=== PATIENT | male | born 1940 | race Caucasian/White ===

== ENCOUNTER 2018-12-31 05:40 | Emergency (ER) | payer MEDICARE, OTHER ==
[2018-12-31] MEDS: Gabapentin 100 MG Cap PO ONE (06:50)
[2018-12-31] MEDS: Ketorolac 30 MG/ML SDV IM ONE (06:51)
[2018-12-31] MEDS: Ondansetron 4 MG Tab.DIS PO ONE (06:51)
--- NOTE | 2018-12-31 06:51 | EDM.PDOC ---
ED HPI GENERAL MEDICAL PROBLEM - General Chief Complaint: Back Pain or Injury Stated Complaint: SICK Time Seen by Provider: 12/31/18 06:58 Source of Information: Reports: Patient History Limitations: Reports: No Limitations - History of Present Illness INITIAL COMMENTS - FREE TEXT/NARRATIVE: c/o shingles pain pt with melanoma on the right side of his neck, dx 01/08, had surgery then followed by RT in [place], then had reoccurrence and a 2nd surgery 3m ago again had RT, then has received 4 courses of chemo including yesterday in [place] , has a port did get 2 liters IVF each of the past 2d developed shingles 2w ago, tx'ed with acyclovir TID x 1w as well as a topical cream that stung initially felt okay yesterday, developed more severe pain at [place] last night, pacing the floor, not able to sleep, says he "cannot stand it" pain across back of R shoulder and down R arm has not had shingles vaccine lives alone says he is supposed to see his surgeon today in [place] but is not going to make the trip 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 Upper Back Pain Score (Numeric/FACES): 10 - Related Data Allergies Allergy/AdvReac Type Severity Reaction Status Date / Time No Known Allergies Allergy Verified 12/30/17 13:43 Home Meds: Home Meds Amitriptyline [Elavil] 10 mg PO TID #56 tablet 12/31/18 [Rx] Aspirin [Halfprin] 81 mg PO DAILY 12/31/18 [History] Gabapentin [Neurontin] 100 mg PO TID #42 cap 12/31/18 [Rx] Hydrocodone/Acetaminophen [Krum 5-325 Tablet] 1 each PO Q6H PRN #15 tablet 01/09 [Rx] Metoclopramide HCl 10 mg PO Q6H PRN #12 tablet 12/31/18 [Rx] Omeprazole 20 mg PO DAILY 12/31/18 [History] Ondansetron [Ondansetron ODT] 4 mg PO Q8H PRN 12/31/18 [History] Pravastatin Sodium 20 mg PO BEDTIME 12/31/18 [History] Verapamil [Calan SR] 180 mg PO DAILY 12/31/18 [History] amLODIPine Besylate [Amlodipine Besylate] 10 mg PO DAILY 12/31/18 [History] metFORMIN HCl [Metformin HCl] 1,000 mg PO BID 12/31/18 [History] traZODone HCl [Trazodone HCl] 50 mg PO BEDTIME 12/31/18 [History] Social & Family History - Tobacco Use Smoking Status *Q: Never Smoker - Caffeine Use Caffeine Use: Reports: None - Recreational Drug Use Recreational Drug Use: No ED ROS GENERAL - Review of Systems Review Of Systems: See Below Constitutional: Reports: No Symptoms HEENT: Reports: No Symptoms Respiratory: Reports: No Symptoms Cardiovascular: Reports: No Symptoms Endocrine: Reports: No Symptoms GI/Abdominal: Reports: No Symptoms : Reports: No Symptoms Musculoskeletal: Reports: No Symptoms Skin: Reports: Rash, Other (burning pain) Neurological: Reports: No Symptoms Psychiatric: Reports: No Symptoms Hematologic/Lymphatic: Reports: No Symptoms Immunologic: Reports: No Symptoms ED EXAM, SKIN/RASH Exam: See Below Exam Limited By: No Limitations General Appearance: Alert, WD/WN, No Apparent Distress Skin: Other (typical zoster rash horizontally across R mid scapula, red papules of 3-5 mm with several 3 mm dried ulcerations, width of 6 cm, length of ~25 cm, extends down posterior aspect of RUE, not sensitive to the touch, no surrounding erythema or warmth or evidence of secondary infection) Course - Vital Signs Last Recorded V/S: Last Vital Signs Temp 36.8 C 12/31/18 05:45 Pulse 47 L 12/31/18 05:45 Resp 18 12/31/18 05:45 BP 188/74 H 12/31/18 05:45 Pulse Ox 97 12/31/18 05:45 - Orders/Labs/Meds Orders: Active Orders 24 hr Category Date Time Status Acetaminophen/HYDROcodone [Krum 325-5 MG] Med 12/31/18 06:44 Once 1 tab PO ONETIME ONE Gabapentin [Neurontin] Med 12/31/18 06:43 Once 100 mg PO ONETIME ONE Medication Orders Hydrocodone Bitart/Acetaminophen (Krum 325-5 Mg) 1 tab PO ONETIME ONE Stop: 12/31/18 06:45 Gabapentin (Neurontin) 100 mg PO ONETIME ONE Stop: 12/31/18 06:44 Meds: Medications Generic Name Dose Route Start Last Admin Trade Name Freq PRN Reason Stop Dose Admin Hydrocodone Bitart/Acetaminophen 1 tab 12/31/18 06:44 Krum 325-5 Mg PO 12/31/18 06:45 ONETIME ONE Gabapentin 100 mg 12/31/18 06:43 Neurontin PO 12/31/18 06:44 ONETIME ONE Discontinued Medications Generic Name Dose Route Start Last Admin Trade Name Freq PRN Reason Stop Dose Admin Ketorolac Tromethamine 15 mg 12/31/18 06:41 Toradol IM 12/31/18 06:42 ONETIME ONE Ondansetron HCl 4 mg 12/31/18 06:41 Zofran Odt PO 12/31/18 06:42 ONETIME ONE Departure - Departure Time of Disposition: 06:45 Disposition: DC/Tfer to Hospice - Home 50 Condition: Good Clinical Impression: Postherpetic neuralgia - Discharge Information *PRESCRIPTION DRUG MONITORING PROGRAM REVIEWED*: Not Applicable *COPY OF PRESCRIPTION DRUG MONITORING REPORT IN PATIENT DAVID: Not Applicable Prescriptions: Amitriptyline [Elavil] 10 mg PO TID #56 tablet Gabapentin [Neurontin] 100 mg PO TID #42 cap Hydrocodone/Acetaminophen [Krum 5-325 Tablet] 1 each PO Q6H PRN #15 tablet PRN Reason: Pain Metoclopramide HCl 10 mg PO Q6H PRN #12 tablet PRN Reason: Nausea Instructions: Neuropathic Pain, Postherpetic Neuralgia Referrals: Greg Manzano MD [Primary Care Provider] - Additional Instructions: For pain, take gabapentin 100 mg 1 capsule 3 times a day. For pain, take amitryptyline 10 mg one tab in the morning, one tab in the early afternoon and two tabs in the evening. For pain, take hydrocodone with acetaminophen 5/325 mg 1 tab every 6 hours as needed. No alcohol. For pain, use cool compress for 10 minutes every hour as needed. For nausea, take metoclopramide 10 mg one tab every 6 hours as needed. See your doctor either tomorrow or in 4 days. Return to ED if you are feeling worse. - My Orders Last 24 Hours: My Active Orders 12/31/18 06:43 Gabapentin [Neurontin] 100 mg PO ONETIME ONE 12/31/18 06:44 Acetaminophen/HYDROcodone [Krum 325-5 MG] 1 tab PO ONETIME ONE - Assessment/Plan Last 24 Hours: My Active Orders 12/31/18 06:43 Gabapentin [Neurontin] 100 mg PO ONETIME ONE 12/31/18 06:44 Acetaminophen/HYDROcodone [Krum 325-5 MG] 1 tab PO ONETIME ONE
[2018-12-31] MEDS: Acetaminophen/HYDROcodone 325-5 MG Tab PO ONE (06:59)
== END 2018-12-31 07:25 | disposition home or self-care (01) ==
LOC: FB.ED 05:40
DX: B02.29 Other postherpetic nervous system involvement (principal); Z79.82 Long term (current) use of aspirin
CPT/HCPCS: 99282; A9270; J1885

== ENCOUNTER 2019-11-27 09:06 | Emergency (ER) | payer MEDICARE ==
[2019-11-27] MEDS ORDERED: Sodium Chloride 0.9% 10 ML Syringe FLUSH PRN (09:24)
[2019-11-27] MEDS ORDERED: Sodium Chloride 0.9% 1,000 ML IV SCH (09:30)
[2019-11-27] MEDS ORDERED: Ondansetron 4 MG/2 ML SDV IVPUSH ONE (09:52)
--- NOTE | 2019-11-27 11:22 | EDM.PDOC ---
ED HPI GENERAL MEDICAL PROBLEM - General Chief Complaint: General Stated Complaint: NOT FEELING WELL Time Seen by Provider: 11/27/19 09:20 Source of Information: Reports: Patient History Limitations: Reports: No Limitations - History of Present Illness INITIAL COMMENTS - FREE TEXT/NARRATIVE: Patient presented to the ED because of weakness and nausea. He has poor oral intake for several days. Denies any abdominal pain,cough/cold,fever or chills. - Related Data Allergies Allergy/AdvReac Type Severity Reaction Status Date / Time No Known Allergies Allergy Verified 11/27/19 09:22 Home Meds: Home Meds Omeprazole 20 mg PO DAILY 12/31/18 [History] Pravastatin Sodium 20 mg PO BEDTIME 12/31/18 [History] Verapamil [Calan SR] 180 mg PO DAILY 12/31/18 [History] traZODone HCl [Trazodone HCl] 50 mg PO BEDTIME 12/31/18 [History] Aspirin [Halfprin] 81 mg PO DAILY 11/27/19 [History] Magnesium Oxide 250 mg PO DAILY 11/27/19 [History] Ondansetron [Zofran ODT] 4 mg PO Q6H PRN #7 tab.dis 11/27/19 [Rx] amLODIPine [Norvasc] 2.5 mg PO DAILY 11/27/19 [History] hydrOXYzine pamoate [Hydroxyzine Pamoate] 25 mg PO BEDTIME 11/27/19 [History] Past Medical History HEENT History: Reports: Impaired Vision Cardiovascular History: Reports: High Cholesterol, Hypertension Respiratory History: Reports: Other (See Below) Other Respiratory History: former smoker. Gastrointestinal History: Reports: GERD Endocrine/Metabolic History: Reports: Diabetes, Type II Oncologic (Cancer) History: Reports: Malignant Melanoma Dermatologic History: Reports: Other (See Below) Other Dermatologic History: has melanoma. - Past Surgical History HEENT Surgical History: Reports: Other (See Below) Other HEENT Surgeries/Procedures: states that he had surgery in his neck to remove 10 lymph nodes about a year ago. Social & Family History - Family History Family Medical History: Noncontributory - Tobacco Use Smoking Status *Q: Former Smoker Used Tobacco, but Quit: Yes Month/Year Tobacco Last Used: 1988 Second Hand Smoke Exposure: No - Caffeine Use Caffeine Use: Reports: Coffee, Energy Drinks, Soda - Alcohol Use Days Per Week of Alcohol Use: 4 Number of Drinks Per Day: 2 Total Drinks Per Week: 8 - Recreational Drug Use Recreational Drug Use: No ED ROS GENERAL - Review of Systems Review Of Systems: See Below Constitutional: Reports: Weakness HEENT: Reports: No Symptoms Respiratory: Reports: No Symptoms Cardiovascular: Reports: No Symptoms Endocrine: Reports: No Symptoms GI/Abdominal: Reports: Nausea : Reports: No Symptoms Musculoskeletal: Reports: No Symptoms Skin: Reports: No Symptoms Neurological: Reports: No Symptoms Psychiatric: Reports: No Symptoms Hematologic/Lymphatic: Reports: No Symptoms ED EXAM, GENERAL - Physical Exam Exam: See Below Exam Limited By: No Limitations General Appearance: Alert, No Apparent Distress Ears: Normal External Exam, Normal Canal Nose: Normal Inspection, Normal Mucosa Throat/Mouth: Normal Inspection, Normal Lips Head: Atraumatic, Normocephalic Neck: Normal Inspection, Supple, Non-Tender, Full Range of Motion Respiratory/Chest: No Respiratory Distress, Lungs Clear, Normal Breath Sounds Cardiovascular: Normal Peripheral Pulses, Regular Rate, Rhythm, No Edema, No Gallop, No JVD, No Murmur, No Rub GI/Abdominal: Normal Bowel Sounds, Soft, Non-Tender, No Organomegaly Back Exam: Normal Inspection, Full Range of Motion Extremities: Normal Inspection, Normal Range of Motion, Non-Tender Course - Vital Signs Text/Narrative:: Labs/EKG was discussed with patient NS 1 L bolus Zofran 4 mg IV x1 Last Recorded V/S: Last Vital Signs Temp 36.3 C 11/27/19 11:22 Pulse 51 L 11/27/19 11:22 Resp 18 11/27/19 11:22 BP 135/64 11/27/19 11:22 Pulse Ox 95 11/27/19 11:22 - Orders/Labs/Meds Orders: Active Orders 24 hr Category Date Time Status Chest 1V Frontal [CR] Stat Exams 11/27/19 09:24 Taken Saline Lock Insert [OM.PC] Routine Oth 11/27/19 09:24 Ordered EKG 12 Lead [EK] Routine Ther 11/27/19 09:24 Ordered Labs: Laboratory Tests 11/27/19 11/27/19 11/27/19 Range/Units 09:40 09:40 09:40 WBC 6.3 (4.5-12.0) X10-3/uL RBC 4.37 (4.30-5.75) x10(6)uL Hgb 13.3 L (13.5-17.8) g/dL Hct 39.9 (30.0-51.3) % MCV 91.2 (80-96) fL MCH 30.3 (27.7-33.6) pg MCHC 33.2 (32.2-35.4) g/dL RDW 12.9 (11.5-15.5) % Plt Count 125 (125-369) X10(3)uL MPV 7.2 L (7.4-10.4) fL Add Manual Diff Yes Neutrophils % (Manual) 73 (46-82) % Lymphocytes % (Manual) 13 (13-37) % Monocytes % (Manual) 11 (4-12) % Eosinophils % (Manual) 3 (0-5) % Sodium 123 L (135-145) mmol/L Potassium 4.0 (3.5-5.3) mmol/L Chloride 89 L* D (100-110) mmol/L Carbon Dioxide 24 (21-32) mmol/L BUN 10 (7-18) mg/dL Creatinine 1.2 (0.70-1.30) mg/dL Est Cr Clr Drug Dosing TNP Estimated GFR (MDRD) 58 L (>60) BUN/Creatinine Ratio 8.3 L (9-20) Glucose 104 (80-116) mg/dL Lactic Acid (0.4-2.0) mmol/L Calcium 9.0 (8.6-10.2) mg/dL Total Bilirubin 0.8 (0.1-1.3) mg/dL AST 34 H (5-25) IU/L ALT 33 (12-36) U/L Alkaline Phosphatase 76 (56-112) IU/L Troponin I 14.4 (4.0-60.3) pg/mL Total Protein 7.3 (6.0-8.0) g/dL Albumin 3.7 (3.2-4.6) g/dL Globulin 3.6 g/dL Albumin/Globulin Ratio 1.0 Urine Color (YELLOW) Urine Appearance (CLEAR) Urine pH (5.0-6.5) Ur Specific [place] (1.010-1.025) Urine Protein (NEGATIVE) mg/dL Urine Glucose (UA) (NORMAL) mg/dL Urine Ketones (NEGATIVE) mg/dL Urine Occult Blood (NEGATIVE) Urine Nitrite (NEGATIVE) Urine Bilirubin (NEGATIVE) Urine Urobilinogen (NEGATIVE) mg/dL Ur Leukocyte Esterase (NEGATIVE) Urine WBC (0-5) Ur Squamous Epith Cells (NS,R,O) Urine Bacteria (NS) 11/27/19 11/27/19 Range/Units 09:40 10:40 WBC (4.5-12.0) X10-3/uL RBC (4.30-5.75) x10(6)uL Hgb (13.5-17.8) g/dL Hct (30.0-51.3) % MCV (80-96) fL MCH (27.7-33.6) pg MCHC (32.2-35.4) g/dL RDW (11.5-15.5) % Plt Count (125-369) X10(3)uL MPV (7.4-10.4) fL Add Manual Diff Neutrophils % (Manual) (46-82) % Lymphocytes % (Manual) (13-37) % Monocytes % (Manual) (4-12) % Eosinophils % (Manual) (0-5) % Sodium (135-145) mmol/L Potassium (3.5-5.3) mmol/L Chloride (100-110) mmol/L Carbon Dioxide (21-32) mmol/L BUN (7-18) mg/dL Creatinine (0.70-1.30) mg/dL Est Cr Clr Drug Dosing Estimated GFR (MDRD) (>60) BUN/Creatinine Ratio (9-20) Glucose (80-116) mg/dL Lactic Acid 1.0 (0.4-2.0) mmol/L Calcium (8.6-10.2) mg/dL Total Bilirubin (0.1-1.3) mg/dL AST (5-25) IU/L ALT (12-36) U/L Alkaline Phosphatase (56-112) IU/L Troponin I (4.0-60.3) pg/mL Total Protein (6.0-8.0) g/dL Albumin (3.2-4.6) g/dL Globulin g/dL Albumin/Globulin Ratio Urine Color Yellow (YELLOW) Urine Appearance Clear (CLEAR) Urine pH 5.0 (5.0-6.5) Ur Specific [place] 1.020 (1.010-1.025) Urine Protein Negative (NEGATIVE) mg/dL Urine Glucose (UA) Normal (NORMAL) mg/dL Urine Ketones 15 H (NEGATIVE) mg/dL Urine Occult Blood Negative (NEGATIVE) Urine Nitrite Negative (NEGATIVE) Urine Bilirubin Negative (NEGATIVE) Urine Urobilinogen Normal (NEGATIVE) mg/dL Ur Leukocyte Esterase Negative (NEGATIVE) Urine WBC 0-5 (0-5) Ur Squamous Epith Cells Occasional (NS,R,O) Urine Bacteria Few H (NS) Meds: Medications Discontinued Medications Generic Name Dose Route Start Last Admin Trade Name Freq PRN Reason Stop Dose Admin Sodium Chloride 1,000 mls @ 999 mls/hr 11/27/19 09:30 11/27/19 09:40 Normal Saline IV 999 mls/hr ASDIRECTED PABLO Administration Ondansetron HCl 4 mg 11/27/19 09:52 11/27/19 10:02 Zofran IVPUSH 11/27/19 09:53 4 mg ONETIME ONE Administration Sodium Chloride 10 ml 11/27/19 09:24 11/27/19 09:30 Saline Flush FLUSH 10 ml ASDIRECTED PRN Administration Keep Vein Open Departure - Departure Time of Disposition: 11:15 Disposition: Home, Self-Care 01 Condition: Good Clinical Impression: Hyponatremia, Weakness - Discharge Information Prescriptions: Ondansetron [Zofran ODT] 4 mg PO Q6H PRN #7 tab.dis PRN Reason: Nausea Instructions: Sodium Test Referrals: Greg Manzano MD [Primary Care Provider] - Forms: ED Department Discharge Additional Instructions: please read discharge instructions on low sodium add a little bit of salt in your diet zofran odt 4 mg every 4 hours as needed follow up as needed Sepsis Event Note (ED) - Evaluation Sepsis Screening Result: No Definite Risk - Focused Exam Vital Signs: Vital Signs Temp Pulse Resp BP Pulse Ox 11/27/19 11:22 36.3 C 51 L 18 135/64 95 11/27/19 09:20 36.0 C L 51 L 18 137/73 96 - My Orders Last 24 Hours: My Active Orders 11/27/19 09:24 Chest 1V Frontal [CR] Stat Saline Lock Insert [OM.PC] Routine EKG 12 Lead [EK] Routine - Assessment/Plan Last 24 Hours: My Active Orders 11/27/19 09:24 Chest 1V Frontal [CR] Stat Saline Lock Insert [OM.PC] Routine EKG 12 Lead [EK] Routine
--- NOTE | 2019-11-30 10:37 | CR ---
INDICATION: Weakness. CHEST, ONE VIEW: Portable AP upright view of the chest was obtained 11/27/19 and compared with 10/01/07. The heart did not appear grossly enlarged. A central line is now noted in place with its tip in good position on this view. Calcification is suggested in the arch of the aorta to a minimal degree. A definite active infiltrate or effusion was not identified. IMPRESSION: No acute process. MTDD
== END 2019-11-27 11:35 | disposition home or self-care (01) ==
LOC: FB.ED 09:06
DX: E87.1 Hypo-osmolality and hyponatremia (principal); R53.1 Weakness; I10 Essential (primary) hypertension; E78.00 Pure hypercholesterolemia, unspecified; E11.9 Type 2 diabetes mellitus without complications; K21.9 Gastro-esophageal reflux disease without esophagitis; Z87.891 Personal history of nicotine dependence; Z79.899 Other long term (current) drug therapy; Z79.82 Long term (current) use of aspirin
CPT/HCPCS: 36415; 71045; 80053; 81001; 83605; 84484; 85025; 93005; 96361; 96374; 99285-25; J2405; J7030

== ENCOUNTER 2019-12-09 08:37 | Emergency (ER) | payer MEDICARE ==
--- NOTE | 2019-12-09 09:25 | EDM.PDOC ---
ED HPI GENERAL MEDICAL PROBLEM - General Chief Complaint: Gastrointestinal Problem Stated Complaint: ABD PAIN Time Seen by Provider: 12/09/19 09:00 Source of Information: Reports: Patient, Old Records History Limitations: Reports: No Limitations - History of Present Illness INITIAL COMMENTS - FREE TEXT/NARRATIVE: Hien returns to [facility] with ongoing sxs of lt headinsss, fatigue, loss of appetite and some diarrhea ongoing over the past couple of weeks. He has lost 1- 2#, and denies fever, chills, or sweats. His legs feel week, as though they might buckle at times. He was diagnosed with hyponatremia on November 29, and managed with 1L NS, follow up sodium 2 days later apparently baseline. He denies headaches, visual change, LOC, falls, vomiting or excessive belching. He is a known Type II DM with CKD 3 and Stage 3C Melanoma, last chemo about 3 mos ago. His oncologist detected hyponatremia on July 14, and d/cd Nivolumab agent and managed initially with steroids. Patient decided to stop supplemental steroids for presumed adrenal insufficiency. - Related Data Allergies Allergy/AdvReac Type Severity Reaction Status Date / Time No Known Allergies Allergy Verified 12/09/19 09:00 Home Meds: Home Meds Omeprazole 20 mg PO DAILY 12/31/18 [History] Pravastatin Sodium 20 mg PO BEDTIME 12/31/18 [History] Verapamil [Calan SR] 180 mg PO DAILY 12/31/18 [History] traZODone HCl [Trazodone HCl] 50 mg PO BEDTIME 12/31/18 [History] Aspirin [Halfprin] 81 mg PO DAILY 11/27/19 [History] Magnesium Oxide 250 mg PO DAILY 11/27/19 [History] Ondansetron [Zofran ODT] 4 mg PO Q6H PRN #7 tab.dis 11/27/19 [Rx] amLODIPine [Norvasc] 2.5 mg PO DAILY 11/27/19 [History] hydrOXYzine pamoate [Hydroxyzine Pamoate] 25 mg PO BEDTIME 11/27/19 [History] Past Medical History HEENT History: Reports: Impaired Vision Cardiovascular History: Reports: High Cholesterol, Hypertension Respiratory History: Reports: Other (See Below) Other Respiratory History: former smoker. Gastrointestinal History: Reports: GERD Endocrine/Metabolic History: Reports: Diabetes, Type II Oncologic (Cancer) History: Reports: Malignant Melanoma Dermatologic History: Reports: Other (See Below) Other Dermatologic History: has melanoma. - Past Surgical History HEENT Surgical History: Reports: Other (See Below) Other HEENT Surgeries/Procedures: states that he had surgery in his neck to remove 10 lymph nodes about a year ago. Social & Family History - Family History Family Medical History: Noncontributory - Caffeine Use Caffeine Use: Reports: Coffee, Energy Drinks, Soda ED ROS GENERAL - Review of Systems Review Of Systems: See Below Constitutional: Reports: Malaise, Weakness, Fatigue, Weight Loss HEENT: Reports: No Symptoms Respiratory: Reports: No Symptoms Cardiovascular: Reports: Lightheadedness Endocrine: Reports: Fatigue GI/Abdominal: Reports: Decreased Appetite : Reports: No Symptoms Musculoskeletal: Reports: No Symptoms Skin: Reports: No Symptoms Neurological: Reports: Weakness (legs feel like they may buckle) Psychiatric: Reports: No Symptoms Hematologic/Lymphatic: Reports: No Symptoms Immunologic: Reports: No Symptoms ED EXAM, GENERAL - Physical Exam Exam: See Below Exam Limited By: No Limitations General Appearance: Alert, WD/WN, No Apparent Distress, Obese Eye Exam: Bilateral Eye: EOMI, Normal Inspection, PERRL Ears: Normal External Exam Nose: Normal Inspection Throat/Mouth: Normal Lips, Normal Oropharynx, Normal Voice, No Airway Compromise Head: Atraumatic, Normocephalic Neck: Normal Inspection, Supple, Non-Tender, Full Range of Motion, Other (well healed scar R neck) Respiratory/Chest: Lungs Clear, Normal Breath Sounds, Chest Non-Tender, Other (veniport L upper chest) Cardiovascular: Normal Peripheral Pulses, Regular Rate, Rhythm, No Murmur, Other (minor pitting edema) GI/Abdominal: Normal Bowel Sounds, Soft, Non-Tender, No Organomegaly, No Distention, No Mass (Male) Exam: Deferred Rectal (Males) Exam: Deferred Back Exam: Normal Inspection Extremities: Pedal Edema (mild) Neurological: Alert, Oriented, CN II-XII Intact, Normal Cognition, No Motor/Sensory Deficits Psychiatric: Normal Affect, Normal Mood Skin Exam: Warm, Dry, Intact, Normal Color, No Rash Lymphatic: No Adenopathy Course - Vital Signs Text/Narrative:: Following assessment, some screening labs were performed, noting Na 128 meq/L has dropped slightly, fractionated urine Na 99 meq. The urine osmols are pending. There is no other changes to renal function. The Head CT w contrast was negative for malignancy. 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 I will resume Prednisone 20 mg per day, institute 800 ml water restriction, and have patient follow up with PCP next week. Last Recorded V/S: Last Vital Signs Temp 36.2 C 12/09/19 08:40 Pulse 60 12/09/19 08:40 Resp 22 H 12/09/19 08:40 BP 131/73 12/09/19 08:40 Pulse Ox 99 12/09/19 08:40 - Orders/Labs/Meds Orders: Active Orders 24 hr Category Date Time Status Head w wo Cont [CT] Stat Exams 12/09/19 10:02 Taken Labs: Laboratory Tests 12/09/19 12/09/19 12/09/19 Range/Units 09:30 09:30 09:30 WBC 6.2 (4.5-12.0) X10-3/uL RBC 3.98 L (4.30-5.75) x10(6)uL Hgb 12.5 L (13.5-17.8) g/dL Hct 36.1 (30.0-51.3) % MCV 90.6 (80-96) fL MCH 31.3 (27.7-33.6) pg MCHC 34.5 (32.2-35.4) g/dL RDW 12.5 (11.5-15.5) % Plt Count 180 (125-369) X10(3)uL MPV 6.8 L (7.4-10.4) fL Neut % (Auto) 65.4 (46-82) % Lymph % (Auto) 12.9 L (13-37) % [place] % (Auto) 15.0 H (4-12) % Eos % (Auto) 6 H (1.0-5.0) % Baso % (Auto) 1 (0-2) % Neut # (Auto) 4.1 (1.6-8.3) # Lymph # (Auto) 0.8 (0.6-5.0) # [place] # (Auto) 0.9 (0.0-1.3) # Eos # (Auto) 0.4 (0.0-0.8) # Baso # (Auto) 0.0 (0.0-0.2) # ESR 36 H (0-15) mm/hr Sodium (135-145) mmol/L Potassium (3.5-5.3) mmol/L Chloride (100-110) mmol/L Carbon Dioxide (21-32) mmol/L BUN (7-18) mg/dL Creatinine (0.70-1.30) mg/dL Est Cr Clr Drug Dosing mL/min Estimated GFR (MDRD) (>60) BUN/Creatinine Ratio (9-20) Glucose (80-116) mg/dL Lactic Acid (0.4-2.0) mmol/L Calcium (8.6-10.2) mg/dL Total Bilirubin (0.1-1.3) mg/dL AST (5-25) IU/L ALT (12-36) U/L Alkaline Phosphatase (56-112) IU/L C-Reactive Protein (0.5-0.9) mg/dL Total Protein (6.0-8.0) g/dL Albumin (3.2-4.6) g/dL Globulin g/dL Albumin/Globulin Ratio Urine Color Yellow (YELLOW) Urine Appearance Clear (CLEAR) Urine pH 6.0 (5.0-6.5) Ur Specific [place] 1.015 (1.010-1.025) Urine Protein Negative (NEGATIVE) mg/dL Urine Glucose (UA) Normal (NORMAL) mg/dL Urine Ketones Negative (NEGATIVE) mg/dL Urine Occult Blood Negative (NEGATIVE) Urine Nitrite Negative (NEGATIVE) Urine Bilirubin Negative (NEGATIVE) Urine Urobilinogen Normal (NEGATIVE) mg/dL Ur Leukocyte Esterase Negative (NEGATIVE) Urine WBC 0-5 (0-5) Ur Squamous Epith Cells Few H (NS,R,O) Urine Bacteria Few H (NS) Ur Random Sodium 99 mmol/L 12/09/19 12/09/19 12/09/19 Range/Units 09:30 09:30 09:30 WBC (4.5-12.0) X10-3/uL RBC (4.30-5.75) x10(6)uL Hgb (13.5-17.8) g/dL Hct (30.0-51.3) % MCV (80-96) fL MCH (27.7-33.6) pg MCHC (32.2-35.4) g/dL RDW (11.5-15.5) % Plt Count (125-369) X10(3)uL MPV (7.4-10.4) fL Neut % (Auto) (46-82) % Lymph % (Auto) (13-37) % [place] % (Auto) (4-12) % Eos % (Auto) (1.0-5.0) % Baso % (Auto) (0-2) % Neut # (Auto) (1.6-8.3) # Lymph # (Auto) (0.6-5.0) # [place] # (Auto) (0.0-1.3) # Eos # (Auto) (0.0-0.8) # Baso # (Auto) (0.0-0.2) # ESR (0-15) mm/hr Sodium 128 L (135-145) mmol/L Potassium 4.2 (3.5-5.3) mmol/L Chloride 94 L D (100-110) mmol/L Carbon Dioxide 28 (21-32) mmol/L BUN 10 (7-18) mg/dL Creatinine 1.4 H (0.70-1.30) mg/dL Est Cr Clr Drug Dosing 43.45 mL/min Estimated GFR (MDRD) 49 L (>60) BUN/Creatinine Ratio 7.1 L (9-20) Glucose 107 (80-116) mg/dL Lactic Acid 0.7 (0.4-2.0) mmol/L Calcium 9.2 (8.6-10.2) mg/dL Total Bilirubin 0.6 (0.1-1.3) mg/dL AST 22 D (5-25) IU/L ALT 22 D (12-36) U/L Alkaline Phosphatase 66 (56-112) IU/L C-Reactive Protein 1.0 H (0.5-0.9) mg/dL Total Protein 6.8 (6.0-8.0) g/dL Albumin 3.4 (3.2-4.6) g/dL Globulin 3.4 g/dL Albumin/Globulin Ratio 1.0 Urine Color (YELLOW) Urine Appearance (CLEAR) Urine pH (5.0-6.5) Ur Specific [place] (1.010-1.025) Urine Protein (NEGATIVE) mg/dL Urine Glucose (UA) (NORMAL) mg/dL Urine Ketones (NEGATIVE) mg/dL Urine Occult Blood (NEGATIVE) Urine Nitrite (NEGATIVE) Urine Bilirubin (NEGATIVE) Urine Urobilinogen (NEGATIVE) mg/dL Ur Leukocyte Esterase (NEGATIVE) Urine WBC (0-5) Ur Squamous Epith Cells (NS,R,O) Urine Bacteria (NS) Ur Random Sodium mmol/L Meds: Medications Discontinued Medications Generic Name Dose Route Start Last Admin Trade Name Freq PRN Reason Stop Dose Admin Iopamidol 100 ml 12/09/19 10:09 12/09/19 10:29 Isovue-370 (76%) IV 12/09/19 10:10 85 ml . DIRECTED ONE Administration Departure - Departure Time of Disposition: 11:47 Disposition: Home, Self-Care 01 Condition: Fair Clinical Impression: Hyponatremia syndrome, Adrenocortical insufficiency - Discharge Information *PRESCRIPTION DRUG MONITORING PROGRAM REVIEWED*: Not Applicable *COPY OF PRESCRIPTION DRUG MONITORING REPORT IN PATIENT DAVID: Not Applicable Referrals: Greg Manzano MD [Primary Care Provider] - Forms: ED Department Discharge Sepsis Event Note (ED) - Evaluation Sepsis Screening Result: No Definite Risk - Focused Exam Vital Signs: Vital Signs Temp Pulse Resp BP Pulse Ox 12/09/19 08:40 36.2 C 60 22 H 131/73 99 - Problem List & Annotations (1) Adrenocortical insufficiency SNOMED Code(s): 838020721 Code(s): E27.40 - UNSPECIFIED ADRENOCORTICAL INSUFFICIENCY Status: Acute Current Visit: Yes Annotation/Comment:: I dispensed Prednisone 20 mg qd for the present, pending follow up with PCP. (2) Hyponatremia syndrome SNOMED Code(s): 2224678 Code(s): E87.1 - HYPO-OSMOLALITY AND HYPONATREMIA Status: Acute Current Visit: Yes Annotation/Comment:: I suggested 800 ml water restriction pending follow up with PCP. - Problem List Review Problem List Initiated/Reviewed/Updated: Yes - My Orders Last 24 Hours: My Active Orders 12/09/19 10:02 Head w wo Cont [CT] Stat - Assessment/Plan Last 24 Hours: My Active Orders 12/09/19 10:02 Head w wo Cont [CT] Stat Plan: Follow up with PCP next week.
[2019-12-09] MEDS ORDERED: Iopamidol 755 Mg/ML 100 ML Bottle IV ONE (10:09)
== END 2019-12-09 11:53 | disposition home or self-care (01) ==
LOC: FB.ED 08:37
DX: E87.1 Hypo-osmolality and hyponatremia (principal); E27.40 Unspecified adrenocortical insufficiency; I10 Essential (primary) hypertension; E11.9 Type 2 diabetes mellitus without complications; E66.9 Obesity, unspecified; K21.9 Gastro-esophageal reflux disease without esophagitis; Z79.82 Long term (current) use of aspirin; Z79.899 Other long term (current) drug therapy
CPT/HCPCS: 36415; 70470; 80053; 81001; 83605; 84300; 85025; 85651; 86140; 99284; Q9967; 99283

== ENCOUNTER 2022-08-19 11:00 | Emergency (ER) | payer MEDICARE ==
[2022-08-19] MEDS ORDERED: traMADol 50 MG Tab PO ONE (11:01)
[2022-08-19] MEDS: Sodium Chloride 0.9% 10 ML Syringe FLUSH PRN (11:15)
[2022-08-19] MEDS: Nitroglycerin 0.4 MG Tab.SL SL ONE (11:16)
[2022-08-19] MEDS: Ondansetron 4 MG/2 ML SDV IVPUSH ONE (11:25)
[2022-08-19 11:31] LABS: BASOPHILS ABSOLUTE AUTO 0.1 x10-3/uL (0.0-0.3); BASOPHILS PERCENT AUTO 0.8 % (0.3-3.8); BLOOD UREA NITROGEN,BUN 18 mg/dL (7-18); BUN/CREATININE RATIO 13.8 (9-20); CALCIUM 9.1 mg/dL (8.6-10.2); CARBON DIOXIDE,CO2 24 mmol/L (21-32); CHLORIDE,CL 98 mmol/L (100-110); CREATININE 1.3 mg/dL (0.70-1.30); EOSINOPHILS ABSOLUTE AUTO 0.1 x10-3/uL (0.0-0.6); EOSINOPHILS PERCENT AUTO 0.5 % (0.1-6.8); ESTIMATED GFR 55 mL/min (>60); GLUCOSE RANDOM 209 mg/dL (80-116); HEMATOCRIT 41.1 % (38.3-50.1); HEMOGLOBIN 14.3 g/dL (12.9-17.7); LYMPHOCYTES ABSOLUTE AUTO 0.6 x10-3/uL (0.5-4.5); LYMPHOCYTES PERCENT AUTO 4.7 % (15.8-45.3); MEAN CORPUSCULAR HEMOGLOBIN 31.6 pg (27.0-33.3); MEAN CORPUSCULAR HGB CONC 34.8 g/dL (28.7-35.3); MEAN PLATELET VOLUME 8.6 fL (6.7-11.0); MONOCYTES ABSOLUTE AUTO 1.7 x10-3/uL (0.0-1.2); MONOCYTES PERCENT AUTO 13.9 % (5.5-15.2); NEUTROPHILS ABSOLUTE AUTO 9.5 x10-3/uL (1.7-6.9); NEUTROPHILS PERCENT AUTO 80.1 % (40.3-71.8); PLATELET COUNT,PLT 149 x10(3)uL (117-477); POTASSIUM,K 4.2 mmol/L (3.5-5.3); RED BLOOD CELL COUNT 4.52 x10(6)uL (3.90-5.90); RED CELL DISTRIBUTION WIDTH 12.8 % (12.4-15.0); SODIUM,NA 133 mmol/L (135-145); WHITE BLOOD CELL COUNT,WBC 11.9 x10-3/uL (3.2-10.1)
[2022-08-19] MEDS: Alum Hydroxide/Mag Hydroxide 15 ML, Lidocaine 2% 15 ML PO ONE ×2 (11:35)
[2022-08-19 11:37] LABS: ALANINE AMINOTRANSFERASE,ALT 42 U/L (12-36); ALBUMIN 3.8 g/dL (3.2-4.6); ALKALINE PHOSPHATASE 87 IU/L (56-112); ASPARTATE AMNIOTRANSFERASE,AST 33 IU/L (5-25); BILIRUBIN TOTAL 1.7 mg/dL (0.1-1.3); PROTEIN TOTAL,TP 7.8 g/dL (6.0-8.0)
[2022-08-19] MEDS: fentaNYL 100 MCG/2 ML SDV IVPUSH STA (11:50)
[2022-08-19] MEDS: Iopamidol 755 Mg/ML 100 ML Bottle IV ONE (12:26)
[2022-08-19] MEDS: Pantoprazole 40 MG Vial IVPUSH ONE (16:05)
[2022-08-19] MEDS: fentaNYL 100 MCG/2 ML SDV IVPUSH ONE (17:42)
== END 2022-08-19 16:40 | disposition home or self-care (01) ==
LOC: FB.ED 11:00
DX: R07.2 Precordial pain (principal); E11.22 Type 2 diabetes mellitus with diabetic chronic kidney disease; I12.9 Hypertensive chronic kidney disease with stage 1 through stage 4 chronic kidney disease, or unspecified chronic kidney disease; N18.9 Chronic kidney disease, unspecified; E78.5 Hyperlipidemia, unspecified; Z79.899 Other long term (current) drug therapy; Z79.82 Long term (current) use of aspirin; Z87.891 Personal history of nicotine dependence
CPT/HCPCS: 36415; 71045; 74177; 80053; 83605; 83690; 84484; 85025; 86140; 93005; 96374; 96375; 99285; A9270; C9113; J2405; J3010; J3490; Q9967

== ENCOUNTER 2023-06-19 08:51 | Emergency (ER) | payer MEDICARE ==
[2023-06-19] MEDS: Ketorolac 30 MG/ML SDV IM ONE (09:44)
[2023-06-19 10:33] LABS: BASOPHILS ABSOLUTE AUTO 0.1 x10-3/uL (0.0-0.3); BASOPHILS PERCENT AUTO 0.7 % (0.3-3.8); EOSINOPHILS ABSOLUTE AUTO 0.1 x10-3/uL (0.0-0.6); EOSINOPHILS PERCENT AUTO 1.9 % (0.1-6.8); HEMATOCRIT 41.3 % (38.3-50.1); HEMOGLOBIN 14.7 g/dL (12.9-17.7); LYMPHOCYTES ABSOLUTE AUTO 1.1 x10-3/uL (0.5-4.5); LYMPHOCYTES PERCENT AUTO 13.6 % (15.8-45.3); MEAN CORPUSCULAR HGB CONC 35.6 g/dL (28.7-35.3); MEAN CORPUSCULAR VOLUME 90.1 fL (80.8-98.7); MEAN PLATELET VOLUME 8.3 fL (6.7-11.0); MONOCYTES ABSOLUTE AUTO 0.8 x10-3/uL (0.0-1.2); MONOCYTES PERCENT AUTO 10.6 % (5.5-15.2); NEUTROPHILS ABSOLUTE AUTO 5.6 x10-3/uL (1.7-6.9); NEUTROPHILS PERCENT AUTO 73.2 % (40.3-71.8); PLATELET COUNT,PLT 134 x10(3)uL (117-477); RED BLOOD CELL COUNT 4.59 x10(6)uL (3.90-5.90); RED CELL DISTRIBUTION WIDTH 12.9 % (12.4-15.0); WHITE BLOOD CELL COUNT,WBC 7.7 x10-3/uL (3.2-10.1)
[2023-06-19 10:36] LABS: BLOOD UREA NITROGEN,BUN 23 mg/dL (7-18); BUN/CREATININE RATIO 19.2 (9-20); CALCIUM 9.1 mg/dL (8.6-10.2); CARBON DIOXIDE,CO2 25 mmol/L (21-32); CHLORIDE,CL 95 mmol/L (100-110); CREATININE 1.2 mg/dL (0.70-1.30); EST CRCL DRUG DOSING (CG) 48.16 mL/min; ESTIMATED GFR 60 mL/min (>60); GLUCOSE RANDOM 168 mg/dL (80-116); POTASSIUM,K 4.1 mmol/L (3.5-5.3); SODIUM,NA 130 mmol/L (135-145)
[2023-06-19 10:42] LABS: A/G RATIO 0.9; ALANINE AMINOTRANSFERASE,ALT 55 U/L (12-36); ALBUMIN 3.6 g/dL (3.2-4.6); ALKALINE PHOSPHATASE 69 IU/L (56-112); ASPARTATE AMNIOTRANSFERASE,AST 35 IU/L (5-25); BILIRUBIN TOTAL 0.9 mg/dL (0.1-1.3); PROTEIN TOTAL,TP 7.6 g/dL (6.0-8.0)
[2023-06-19] MEDS: Morphine 2 MG/ML SYRINGE IM ONE (10:54)
== END 2023-06-19 11:51 | disposition home or self-care (01) ==
LOC: FB.ED 08:51
DX: M19.90 Unspecified osteoarthritis, unspecified site (principal); E78.00 Pure hypercholesterolemia, unspecified; I10 Essential (primary) hypertension; K21.9 Gastro-esophageal reflux disease without esophagitis; E11.9 Type 2 diabetes mellitus without complications; E66.9 Obesity, unspecified; Z79.899 Other long term (current) drug therapy; Z79.82 Long term (current) use of aspirin; Z86.19 Personal history of other infectious and parasitic diseases; Z87.891 Personal history of nicotine dependence; Z68.34 Body mass index [BMI] 34.0-34.9, adult
CPT/HCPCS: 36415; 72110; 80053; 85025; 86140; 96372; 99283; J1885